=== PATIENT | female | born 1940 | race Caucasian/White ===

== ENCOUNTER 2019-12-06 07:06 | Day surgery (SDC) | payer OTHER, MEDICARE ==
[2019-12-06] MEDS ORDERED: Ringers Lactate 1,000 ML IV ONE (07:45)
[2019-12-06] MEDS ORDERED: LIDOCAINE 1% MPF 5 ML VIAL ONE (08:37)
[2019-12-06] MEDS ORDERED: propofoL 200 MG/20 ML VIAL IV ONE (08:37)
[2019-12-06] MEDS ORDERED: EPINEPHRINE/PF 1 MG/ML AMP ONE (08:41)
--- NOTE | 2019-12-06 09:03 | ENDO RPT ---
[address], [address] EGD PROCEDURE REPORT EXAM DATE: 12/06/2019 PATIENT NAME: Vaishali Lagunas MR#: [id number] BIRTHDATE: 1940 ATTENDING: Hema Silveira Dr STATUS: outpatient [employer] APPRENTICE: Joanna Dorantes and Agatha Fiore RN INDICATIONS: The patient is a 79 yr old Female here for an EGD due to GERD, heartburn, bloating, belching, dyspepsia, and weight loss PROCEDURE PERFORMED: EGD with biopsy MEDICATIONS: Per Anesthesia. TOPICAL ANESTHETIC: none CONSENT: The patient understands the risks and benefits of the procedure and understands that these risks include, but are not limited to: sedation, allergic reaction, infection, perforation and/or bleeding. Alternative means of evaluation and treatment include, among others: physical exam, x-rays, and/or surgical intervention. The patient elects to proceed with this endoscopic procedure. DESCRIPTION OF PROCEDURE: During intra-op preparation period all mechanical medical equipment was checked for proper function. Hand hygiene and appropriate measures for infection prevention was taken. Procedure, possible complications, and alternatives including but not limited to the possibility of bleeding, perforation, tear, infection, sepsis, need for surgery, need for blood transfusion, and anesthesia related complications were explained to the patient. After the risks, benefits and alternatives of the procedure were thoroughly explained, Informed consent was verified, confirmed and timeout was successfully executed by the treatment team. The patient was placed in the left lateral position. The patient was anesthetized with topical anesthesia. Through the anesthetized oropharyngeal area, the scope was passed without any difficulty. The [id number] ([id number]) endoscope was introduced through the mouth and advanced to the second portion of the duodenum. Retroflexed views revealed a small hiatal hernia. The gastroscope was then slowly withdrawn and removed. A small hiatal hernia was found Mild Atrophic gastritis was found in the antrum. Multiple biopsies were obtained and sent to pathology. ADVERSE EVENTS: There were no complications. IMPRESSIONS: 1. Small hiatal hernia 2. Mild atrophic gastritis in the antrum, s/p biopsies RECOMMENDATIONS: 1. await biopsy results 2. acid suppression therapy REPEAT EXAM: Hema Silveira Dr eSigned: Hema Silveira Dr 12/06/2019 9:02 AM cc: Arun Esqueda CPT CODES: ICD9 CODES: PATIENT NAME: Vaishali Lagunas MR#: [id number]
[2019-12-06 09:10] VITALS: O2SAT 100
[2019-12-06 09:27] VITALS: BP 140/65; TEMP 97.5
== END 2019-12-06 09:52 | disposition home or self-care (01) ==
LOC: OR 07:06
PROVIDERS: ATTEND Internal Medicine Gastroenterology
PROC: 0DB68ZX Excision of Stomach, Via Natural or Artificial Opening Endoscopic, Diagnostic (ICD-10-PCS; principal; 2019-12-06 08:30)
DX: K21.9 Gastro-esophageal reflux disease without esophagitis (principal); K29.40 Chronic atrophic gastritis without bleeding; K44.9 Diaphragmatic hernia without obstruction or gangrene; I10 Essential (primary) hypertension; I48.91 Unspecified atrial fibrillation; G47.33 Obstructive sleep apnea (adult) (pediatric); M19.90 Unspecified osteoarthritis, unspecified site; R01.1 Cardiac murmur, unspecified; Z95.1 Presence of aortocoronary bypass graft; Z86.010 Personal history of colon polyps; Z79.82 Long term (current) use of aspirin; Z79.02 Long term (current) use of antithrombotics/antiplatelets
CPT/HCPCS: 88312; 88305; 43239; J2704; J7120; J0171